=== PATIENT | male | born 1975 | race American Indian/Alaskan Native ===

== ENCOUNTER 2021-09-09 06:05 | Day surgery (SDC) | payer BC ==
[~2021-09-09 06:05] MED LIST: ceFAZolin/Water 2 GM/20 ML 2 GM/20 ML SYRINGE IV SCH
[2021-09-09] MEDS ORDERED: SODIUM CHLORIDE 0.9% 1000 ML 1,000 ML ONE (06:34)
[2021-09-09 07:20] LABS: Hematocrit 22.6 % (35.5-45.6); Hemoglobin 7.6 gm/dl (11.8-15.2); Mean Corpuscular HGB Conc 34 % (32-34); Mean Corpuscular Volume 89 fl (84-94); Platelet Count 216 K/mm3 (140-440); Red Blood Count 2.54 M/mm3 (3.65-5.03); Red Cell Distribution Width 12.7 % (13.2-15.2)
[2021-09-09] MEDS ORDERED: BUPIVACAINE/PF (0.5%) 5 MG/1 ML 30 ML VIAL INFILTRATI ONE ×2 (07:34→09:43)
[2021-09-09] MEDS ORDERED: SODIUM CHLORIDE 0.9% 500 ML 500 ML ONE (07:34)
[2021-09-09] MEDS ORDERED: HEPARIN 10,000 UNITS/10 ML VIAL ONE (07:34)
[2021-09-09 07:35] LABS: Calcium 9.5 mg/dL (8.4-10.2)
[2021-09-09] MEDS ORDERED: propofoL 200 MG/20 ML VIAL IV ONE (07:46)
[2021-09-09] MEDS ORDERED: LIDOCAINE MPF (2%) 20 MG/1 ML VIAL 5 ML ONE (07:46)
[2021-09-09] MEDS ORDERED: ONDANSETRON 4 MG/2 ML INJ ONE (07:46)
[2021-09-09] MEDS ORDERED: fentaNYL 100 MCG/2 ML INJ ONE (07:46)
--- NOTE | 2021-09-09 08:06 | Anesthesia Consultation ---
Anesthesia Consult and Med Hx Date of service: 09/09/21 - Airway Anesthetic Teeth Evaluation: Poor ROM Head & Neck: Adequate Mental/Hyoid Distance: Adequate Mallampati Class: Class I Intubation Access Assessment: Good - Pulmonary Exam CTA: Yes - Pre-Operative Health Status ASA Pre-Surgery Classification: ASA3 Proposed Anesthetic Plan: General - Pulmonary Hx Smoking: No Hx Respiratory Symptoms: No Hx Sleep Apnea: No (SNORES-HIGH RISK ON EDILIA PRESCREEN.) - Cardiovascular System Hx Hypertension: Yes - Central Nervous System Hx Seizures: No Hx Psychiatric Problems: No - Endocrine Hx Renal Disease: Yes Hx End Stage Renal Disease: Yes (NO DIALYSIS YET) Hx Liver Disease: No Hx Non-Insulin Dependent Diabetes: Yes (Blood glucose 89mg/dl) Hx Thyroid Disease: No - Hematic Hx Anemia: Yes Hx Sickle Cell Disease: No - Other Systems Hx Alcohol Use: No Hx Cancer: No Hx Obesity: Yes (BMI-34.7kg) - Additional Comments Anesthesia Medical History Comments: denied previous anesthesia complication
--- NOTE | 2021-09-09 08:07 | Anesthesia Day of Surgery ---
Anesthesia Day of Surgery - Day of Surgery Patient Examined: Yes Patient H&P Reviewed: Yes Patient is NPO: Yes Beta Blockers: No Cardiac Clearance: No Pulmonary Clearance: No
[2021-09-09] MEDS ORDERED: HEPARIN 10,000 UNITS/10 ML VIAL IR ONE (09:00)
[2021-09-09] MEDS ORDERED: SODIUM CHLORIDE 0.9% IRR 1,500 ML BOTTLE IR ONE (09:01)
[2021-09-09] MEDS ORDERED: SODIUM CHLORIDE 0.9% 500 ML IVPB IRRIGATION ONE (09:01)
[2021-09-09] MEDS ORDERED: SODIUM CHLORIDE 0.9% 1000 ML 1,000 ML IV SCH (10:00)
--- NOTE | 2021-09-09 10:01 | Short Stay Summary ---
Short Stay Documentation Date of service: 09/09/21 Narrative H&P: See H&P - History H&P: obtained from office - Allergies and Medications Current Medications: Allergies No Known Allergies Allergy (Unverified 09/01/21 15:53) Home Medications Medication Instructions Recorded Confirmed Last Taken Type Isis Lee U-100 15 units SUB-Q DAILY 09/01/21 09/09/21 09/08/21 20:00 History Cholecalciferol (Vitamin D3) 50 mcg PO 1XW 09/01/21 09/09/21 09/07/21 09:00 History [Vitamin D3] Furosemide [Lasix] 40 mg PO DAILY 09/01/21 09/09/21 09/08/21 09:00 History Losartan-Hctz 100-12.5 mg Tab 100 mg PO DAILY 09/01/21 09/09/21 09/08/21 09:00 History Metoprolol [Lopressor] 25 mg PO DAILY 09/01/21 09/09/21 09/09/21 05:00 History NIFEdipine [Nifedipine ER] 90 mg PO DAILY 09/01/21 09/09/21 09/09/21 05:00 History Procrit (Nf) 1 syr IM Q2W 09/01/21 09/09/21 09/08/21 09:00 History Rosuvastatin (Nf) 10 mg PO DAILY 09/01/21 09/09/21 09/08/21 09:00 History calcitrioL [Rocaltrol] 0.5 mcg PO QDAY 09/01/21 09/09/21 09/08/21 09:00 History hydrALAZINE [Apresoline] 25 mg PO BID 09/01/21 09/09/21 09/08/21 09:00 History Active Medications Cefazolin Sodium (Ancef/Sterile Water 2 Gm/20 Ml) 2 gm in 20 mls @ 80 mls/hr IV PREOP RICO; Protocol Sodium Chloride (Nacl 0.9% 1000 Ml) 1,000 mls @ 42 mls/hr IV DIRECT RICO - Brief post op/procedure progress note Date of procedure: 09/09/21 Pre-op diagnosis: Chronic Renal Failure Post-op diagnosis: same Procedure: Creation of Left Radiocephalic (Frank-Brescia) Arteriovenous Fistula Anesthesia: MAC, regional Surgeon: SHADIA SEXTON Estimated blood loss: minimal Pathology: none Condition: stable - Disposition Condition at discharge: Good Disposition: 01 HOME / SELF CARE / HOMELESS Short Stay Discharge Plan Activity: other (No heavy lifting with left arm for 2 weeks. Use stress ball with left hand as often as possible.) Wound: open to air, keep clean and dry, other (Okay to shower and wash the left arm incision with soap and water but do not soak in water for 2 weeks.) Follow up with: SHADIA SEXTON MD [Staff Physician] - 14 Days Prescriptions: HYDROcodone/APAP 5-325 [[place] 5/325] 1 each PO Q4HR PRN #30 tablet PRN Reason: Pain
--- NOTE | 2021-09-09 10:03 | Operative Report ---
Operative Report Operative Report: Date of procedure: 09/09/2021 Pre-operative diagnosis: Chronic Renal Failure Post-operative diagnosis: Same Procedure(s): Creation of Left Frank Arteriovenous Fistula Surgeon: Daljit Reed MD Apartment Maintenance Worker: None Anesthesia: Regional/MAC EBL: Minimal Counts: Correct Complications: None Condition: Stable Findings: Successful creation of left arm AV fistula with palpable thrill at the completion of the case. Specimen: None Indication: The patient is a 45-year-old male with history of chronic renal sufficiency who was not yet on hemodialysis however it is anticipated that he would progress to end-stage renal disease with the need for hemodialysis in the near future. He is in need of permanent dialysis access to avoid the placement of a permacath and was found to be a suitable candidate for creation of a left arm arteriovenous fistula. He was given the risk, benefits, and alternative procedures and consented to the procedure. Description of Procedure: Prior to being transported to the operating room the patient had a regional block of the left upper extremity performed in the preoperative area. The patient was then transported to the operating room and adequately sedated. Once the patient was adequately sedated the left arm was prepped and draped in normal sterile fashion. A longitudinal incision was then created on the distal wrist, centered between the cephalic vein and the radial artery. The dissection was carried down to the radial artery using sharp dissection and the radial artery was dissected circumferentially and controlled with vessel loops. The cephalic vein was then dissected circumferentially, ligating side branches with 3-0 silk ties and dividing them. The cephalic vein was then divided distally transpose to the radial artery. A 3 Angela was then advanced through the cephalic vein proximally to ensure patency. The vein was then flushed with heparinized saline and control of the bulldog clamp. The patient was systemically heparinized with 3000 units of heparin IV and the radial artery clamped with DeBakey clamps. An arteriotomy was then created using an 11 blade and Valdivia scissors. An end-to-side anastomosis was created between the cephalic vein and the radial artery using a single 6-0 Prolene in running fashion. Prior to completing the anastomosis I flashed the artery both retrograde and antegrade and advanced a 3 Angela into the proximal portion of the artery to break the spasm. I then completed the anastomosis and removed all clamps allowing flow into the fistula which had a palpable thrill. Hemostasis within the wound was achieved with a combination of manual pressure and Quick Clot. Once hemostasis was achieved the wounds were closed in 2 layers using a 3-0 Vicryl in running fashion in the deep dermal layers, 4-0 Monocryl in a running fashion the subcuticular layer, and Dermabond as a dressing. The patient tolerated the procedure well. All sponge, needle, and instrument counts were correct. The patient was taken to the recovery area in stable condition.
[2021-09-09] MEDS ORDERED: HYDROcodone/ACETAMINOPHEN 5-325 MG TAB PO PRN (10:12)
--- NOTE | 2021-09-09 10:17 | Post Anesthesia Evaluation ---
- Post Anesthesia Evaluation Patient Participated: Yes Airway Patent: Yes Stable Respiratory Function: Yes Nausea/Vomiting: No Temp > 96.8F: Yes Pain Manageable: Yes Adequeate Hydration: Yes Anesthesia Complications: No
[2021-09-09 10:35] VITALS: BP 144/78
== END 2021-09-09 10:55 | disposition home or self-care (01) ==
LOC: OR 06:05
PROVIDERS: ATTEND Surgery Vascular Surgery
DX: I12.0 Hypertensive chronic kidney disease with stage 5 chronic kidney disease or end stage renal disease (principal); E11.22 Type 2 diabetes mellitus with diabetic chronic kidney disease; N18.6 End stage renal disease; K21.9 Gastro-esophageal reflux disease without esophagitis; D64.9 Anemia, unspecified; E66.9 Obesity, unspecified; Z79.899 Other long term (current) drug therapy; E78.00 Pure hypercholesterolemia, unspecified; Z98.890 Other specified postprocedural states; Z68.34 Body mass index [BMI] 34.0-34.9, adult
CPT/HCPCS: 36415; 36821; 80048; 82962; 85027; J0690; J1644; J2405; J2704; J3010; J3490; J7030; J7040